=== PATIENT | male | born 1970 | race Caucasian/White ===

== ENCOUNTER 2017-10-22 10:00 | Day surgery (SDC) | payer OTHER ==
[~2017-10-22 10:00] MED LIST: HYDROCO/APAP1 TA9 PO
[2017-10-22] MEDS ORDERED: KEFLEX500 MG PO (14:31)
[2017-10-22] MEDS ORDERED: PERCOCET 10/31 COMBO PO (14:31)
[2017-10-22] MEDS ORDERED: ECOTRIN LOW STR81 MG PO (14:31)
[2017-10-22 15:15] VITALS: BP 160/88
== END 2017-10-22 15:11 | disposition home or self-care (01) | DRG 494 ==
LOC: ORM 10:00
PROVIDERS: ATTEND Podiatrist Foot & Ankle Surgery
PROC: 0QSK04Z Reposition Left Fibula with Internal Fixation Device, Open Approach (ICD-10-PCS; principal; 2017-10-22)
PROC: 0SSG04Z Reposition Left Ankle Joint with Internal Fixation Device, Open Approach (ICD-10-PCS; 2017-10-22)
PROC: 0SBG4ZZ Excision of Left Ankle Joint, Percutaneous Endoscopic Approach (ICD-10-PCS; 2017-10-22)
DX: S82.852A Displaced trimalleolar fracture of left lower leg, initial encounter for closed fracture (principal); S93.432A Sprain of tibiofibular ligament of left ankle, initial encounter; W01.0XXA Fall on same level from slipping, tripping and stumbling without subsequent striking against object, initial encounter
CPT/HCPCS: J2270